=== PATIENT | female | born 1965 | race Caucasian/White ===

== ENCOUNTER 2017-01-26 05:51 | Day surgery (SDC) | payer BC ==
--- NOTE | 2017-01-25 09:34 | GHP ---
[f rep st] PREOP HISTORY AND PHYSICAL DATE OF ADMISSION: 01/26/2017 HISTORY: Upon presentation, the patient is a 51-year-old, para 2 white female with a history of menorrhagia and increasing dysfunctional bleeding. The patient has had a long history of menorrhagia with at least 3-4 days of extremely heavy flow with regular cycles in the past. Over the last 1-2 years, the cycle frequency is becoming more irregular with sometimes spacing up to 2 months, and the menorrhagia now is increased to 6-7 days. The patient has extremely heavy flow for those days and then usually light flow for several days after. 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 The patient has been advised several times about the options including an IUD for cycle reduction as well as an ablation or hysterectomy. The patient has not wanted to pursue anything definitive in the past and currently is so fed up with the bleeding she wants to proceed with an ablation and a D and C. The risks and benefits of the procedure have been discussed and the consent form signed. The patient understands that in November when her ultrasound was performed the lining was 0.5 cm, which is generally reassuring; however, an endometrial biopsy would help to lessen the risk that this is complex hyperplasia going unnoticed that needs to be addressed more with a hysterectomy. The patient wants to proceed as planned without an endometrial biopsy. She understands that I will remove as much of the endometrial lining as possible for diagnostics before the ablation is performed. The patient also understands that her options will be more limited if she continues to have dysfunctional bleeding, then she will need to have a hysterectomy. PAST MEDICAL HISTORY: Migraines that have lessened since the perimenopause but continue to happen at the end of the flow. The patient has tried to manage with acupuncture and herbs but uses Zomig as well for treatment. PAST SURGICAL HISTORY: section x2 and the last one was with a tubal ligation. PAST OBSTETRIC HISTORY: since section x2 at term. She has 2 daughters , and the C-sections were in 1992 and 2000. Her second was with the tubal ligation. ALLERGIES: The patient has an allergy to sulfa. CURRENT MEDICATIONS: Zomig p.r.n. for migraines and otherwise supplements with herbs, magnesium, and Kyburz-3s. SOCIAL HISTORY: The patient is , lives with her who works where he is here for 2-1/2 months and then has to be away at work for 2-1/2 months. The patient does regular cardiovascular exercise, has minimal alcohol, is a nonsmoker, and does not smoke pot. SAS ARCHITECT HISTORY: History as noted above. The patient has no history of sexually transmitted diseases. Last Pap smear was negative in July 2016 with a negative HPV. Mammogram was performed in April 2016 as well as a right breast ultrasound that were felt to be benign. Ultrasound performed in November 2016 showing a uterus 7.8 x 7 cm x 7.6 cm with an endometrial thickness of 0.5 cm. The patient has 2 intramural fibroids. The largest is 4.2 cm in the upper area and a small one in the midsection that is 1.2 cm. The patient has a 3.2 cm posterior subserosal fibroid. At the time of ultrasound, both ovaries appeared totally normal. The right had a 2 cm complex cyst. PHYSICAL EXAM: GENERAL: The patient is a well-developed, well-nourished white female in no physical distress. VITAL SIGNS: She is clinically afebrile, blood pressure 100/64. Weight 140 pounds. Height 66 inches. LUNGS: Clear to auscultation bilaterally. CARDIOVASCULAR: Regular rate and rhythm. ABDOMEN: Soft, nontender. PELVIC: Not repeated, but it was normal in July 2016 with an anteflexed small uterus. EXTREMITIES: Nontender with no edema. ASSESSMENT: Menorrhagia, dysfunctional uterine bleeding, uterine fibroids with normal endometrium on ultrasound. PLAN: January 26 proceed to the operating room to perform hysteroscopy with D and C and an endometrial ablation. Patient has long travel plans on February 02 and is advised to use low-dose aspirin and support stockings. /[id number]/MODL MTDD
[~2017-01-26 05:51] MED LIST: LR 1,000 ML IV SCH; ceFAZolin 2 GM/DEXTROSE 100 ML IV ONE
[2017-01-26] MEDS ORDERED: LR 1,000 ML IV ONE (06:17)
[2017-01-26] MEDS ORDERED: LIDOCAINE 1% 2 ML INJ ID PRN (06:17)
[2017-01-26 06:26] VITALS: PULSE 68
[2017-01-26] MEDS ORDERED: CEFAZOLIN 2 GM/DEXTROSE/100 ML BAG IV ONE (06:48)
[2017-01-26 06:59] LABS: % IMMATURE GRANULYOCYTES 0.2 % (0.0-1.1); ABSOLUTE IMMATURE GRANULOCYTES 0.01 10^3/uL (0.00-0.10); ADD DIFF? NO; ADD MORPH? NO; ADD SCAN? NO; ATYPICAL LYMPHOCYTE FLAG 20 (0-99); FRAGMENT RBC FLAG 0 (0-99); HEMATOCRIT 33.5 % (38.0-47.0); HEMOGLOBIN 11.2 g/dL (12.6-16.3); LEFT SHIFT FLG 0 (0-99); LIPEMIA HEMOLYSIS FLAG 80 (0-99); MEAN CELL HEMOGLOBIN 30.4 pg (27.9-34.1); MEAN CELL HEMOGLOBIN CONCENTR. 33.4 g/dL (32.4-36.7); MEAN CELL VOLUME 90.8 fL (81.5-99.8); MEAN PLATELET VOLUME 11.9 fL (8.7-11.7); PLATELET CLUMPS FLAG 0 (0-99); PLATELET COUNT 181 10^3/uL (150-400); RED BLOOD CELL COUNT 3.69 10^6/uL (4.18-5.33); RED CELL DISTRIBUTION WIDTH 13.1 % (11.5-15.2)
[2017-01-26] MEDS ORDERED: SILVER NITRATE APPLICATOR 1 APPL TP ONE ×2 (07:02→08:24)
[2017-01-26] MEDS ORDERED: MIDAZOLAM 2 MG/2 ML VIAL IVP ONE (07:11)
--- NOTE | 2017-01-26 07:11 | PDANEPAE ---
ANE History of Present Illness dysfunctional bleeding ANE Past Medical History - Cardiovascular History Hx Hypertension: No Hx Arrhythmias: No Hx Chest Pain: No Hx Coronary Artery / Peripheral Vascular Disease: No Hx CHF / Valvular Disease: No Hx Palpitations: No Cardiovascular History Comment: anemia- takes Iron - Pulmonary History Hx COPD: No Hx Asthma/Reactive Airway Disease: No Hx Recent Upper Respiratory Infection: No Hx Oxygen in Use at Home: No Hx Sleep Apnea: No Sleep Apnea Screening Result - Last Documented: Negative - Neurologic History Hx Cerebrovascular Accident: No Hx Seizures: No Hx Dementia: No Neurologic History Comment: migraines- sporadic and hormone related x 30 yrs. - Endocrine History Hx Diabetes: No - Renal History Hx Renal Disorders: No - Liver History Hx Hepatic Disorders: No - Neurological & Psychiatric Hx Hx Neurological and Psychiatric Disorders: No - Cancer History Hx Cancer: No - Congenital Disorder History Hx Congenital Disorders: No - GI History Hx Gastrointestinal Disorders: No - Other Health History Other Health History: prolonged bleeding -menstrual;. URI -improving. currently noting few occ hives on face; - Chronic Pain History Chronic Pain: No - Surgical History Prior Surgeries: C sections 1992,2000 w/T.L. 2000;. varicose vein procedure ANE Review of Systems - Exercise capacity METS (RN): 4 METS ANE Patient History - Allergies Allergies/Adverse Reactions: Sulfa (Sulfonamide Antibiotics) Allergy (Verified 01/25/17 12:24) Swelling/neck,face,throat - Home Medications Home Medications: Excedrin Tablet (*) 01/25/17 [Last Taken 1 Week Ago] MAGNESIUM 01/25/17 [Last Taken 2 Days Ago] Multivit with Iron-Minerals 01/25/17 [Last Taken 2 Days Ago] [place] 3 500 Softgel 01/25/17 [Last Taken 2 Days Ago] Vitamin D3 01/25/17 [Last Taken 2 Days Ago] Zomig 01/25/17 [Last Taken 1 Week Ago] - NPO status NPO Since - Liquids (Date): 01/25/17 NPO Since - Liquids (Time): 23:30 NPO Since - Solids (Date): 01/25/17 NPO Since - Solids (Time): 19:30 - Smoking Hx Smoking Status: Never smoked ANE Labs/Vital Signs - Labs Result Diagrams: 01/25/17 06:20 - Vital Signs Blood Pressure: 136/91 Heart Rate: 68 Respiratory Rate: 16 O2 Sat (%): 95 Height: 168.91 cm Weight: 61.235 kg ANE Physical Exam - Airway Neck exam: FROM Mallampati Score: Class 1 Mouth exam: normal dental/mouth exam - Pulmonary Pulmonary: no respiratory distress - Cardiovascular Cardiovascular: regular rate and rhythym - ASA Status ASA Status: I ANE Anesthesia Plan Anesthesia Plan: GA w LMA
[2017-01-26] MEDS ORDERED: fentaNYL 100 MCG/2 ML INJ ONE ×2 (07:13→09:26)
[2017-01-26] MEDS ORDERED: PROPOFOL 200 MG/20 ML VIAL ONE ×2 (07:14)
--- NOTE | 2017-01-26 07:31 | PDHPUP ---
History & Physical Update H&P update statement: This history and physical update is based on an assessment of the patient which was completed after admission or registration (within 24 hours), but prior to the surgery/procedure.
[2017-01-26] MEDS ORDERED: DEXAMETHASONE 4 MG/ML VIAL ONE (07:51)
[2017-01-26] MEDS ORDERED: ONDANSETRON 4 MG/2 ML VIAL ONE ×2 (07:51→09:18)
[2017-01-26] MEDS ORDERED: NALOXONE HCL 0.4 MG/ML INJ IVP PRN (08:06)
[2017-01-26] MEDS ORDERED: fentaNYL 100 MCG/2 ML INJ IVP PRN (08:06)
--- NOTE | 2017-01-26 09:22 | POSTOPPROG ---
Post Op Note Date of Operation: 01/26/17 Surgeon: Geeta Izaguirre Anesthesiologist: Bladimir Herbert MD Anesthesia: GET(General Endotracheal) Pre-op Diagnosis: menorrhagia and DUB Post-op Diagnosis: same with intrauterine fibroids Indication: increasing menorrhagia with DUB, perimenopause, lining 5mm Procedure: HSC, D&C, attempted ablation - unsuccessful Findings: irreg cavity with fibroids, cx4.3cm, uter11.3cm - cavity 6.5 on Nona Inf/Abcess present in the surg proc area at time of surgery?: No Depth: Organ Space EBL: 50-100 Complications: unable to perform ablation as equipment wouldn't achieve good seal although good distention maintained on HSC. recorded 1500 deficit however with good distention and no identifiable perforation. morcellation and D&C done. dilated to 9cm for hsc without problems. nona attempted x2 instruments, even trying filling bulb x2 syringes. novasure attempted - CIT not passes. minimal bleeding from tenac sites Specimen(s): intrauterine contents - morcellated fibroid
[2017-01-26] MEDS ORDERED: HYDROmorphONE/DILAUDID 1 MG/ML SYR ONE (09:26)
[2017-01-26] MEDS ORDERED: PROMETHAZINE HCL 25 MG/ML INJ ONE (09:27)
[2017-01-26] MEDS: HYDROmorphONE/DILAUDID 1 MG/ML SYR IVP PRN ×2 (09:29→10:08)
[2017-01-26] MEDS ORDERED: ONDANSETRON 4 MG/2 ML VIAL IVP ONE (09:30)
[2017-01-26] MEDS ORDERED: PROMETHAZINE HCL 25 MG/ML INJ IVP ONE (09:32)
[2017-01-26] MEDS ORDERED: PROMETHAZINE HCL 25 MG/ML INJ IVP PRN (09:32)
--- NOTE | 2017-01-26 09:37 | POSTANESTH ---
Post Anesthetic Evaluation Cardiovascular Status: Normal, Stable Respiratory Status: Normal, Stable Level of Consciousness/Mental Status: Can Participate in Eval Pain Control: Adequate, Prn Tx Ordered Nausea/Vomiting Control: Adequate, Prn Tx Ordered Complications Possibly Related to Anesthesia: None Noted
[2017-01-26 10:26] VITALS: TEMP 97.5
[2017-01-26 10:46] VITALS: RESP 10
[2017-01-26 13:34] VITALS: BP 123/85; O2SAT 96
== END 2017-01-26 13:07 | disposition home or self-care (01) ==
LOC: FSGY 05:51
PROVIDERS: ATTEND Obstetrics & Gynecology
PROC: 0UDB8ZZ Extraction of Endometrium, Via Natural or Artificial Opening Endoscopic (ICD-10-PCS; principal; 2017-01-26 07:15)
DX: N92.0 Excessive and frequent menstruation with regular cycle (principal); N93.8 Other specified abnormal uterine and vaginal bleeding; D25.0 Submucous leiomyoma of uterus
CPT/HCPCS: 58563; C1782; J0690; J1100; J1170; J2250; J2405; J2550; J2704; J3010

== ENCOUNTER → 2017-07-01 | Outpatient (CLI) | payer BC | LOC: FIMAGING 08:28 | PROVIDERS: ATTEND Obstetrics & Gynecology | DX: Z12.31 Encounter for screening mammogram for malignant neoplasm of breast (principal) ==

== ENCOUNTER → 2018-03-11 | Outpatient (CLI) | payer BC | LOC: FIMAGING 09:23 | PROVIDERS: ATTEND Obstetrics & Gynecology | DX: Z13.820 Encounter for screening for osteoporosis (principal) ==

== ENCOUNTER → 2018-08-18 | Outpatient (CLI) | payer BC | LOC: FIMAGING 12:13 | PROVIDERS: ATTEND Obstetrics & Gynecology | DX: Z12.31 Encounter for screening mammogram for malignant neoplasm of breast (principal); R92.8 Other abnormal and inconclusive findings on diagnostic imaging of breast ==

== ENCOUNTER → 2018-09-08 | Outpatient (CLI) | payer BC | LOC: FIMAGING 13:08 | PROVIDERS: ATTEND Obstetrics & Gynecology | DX: N60.11 Diffuse cystic mastopathy of right breast (principal) ==